=== PATIENT | female | born 1995 | race Caucasian/White ===

== ENCOUNTER 2022-04-27 09:10 | Outpatient (CLI) | payer OTHER, SELFPAY ==
[2022-04-27 15:38] LABS: Vitamin D 25 Hydroxy* 32 ng/mL (30-80)
[2022-04-27 16:30] LABS: TSH With Reflex to FT4* 0.959 uIU/mL (0.270-4.200)
== END 2022-04-27 09:11 | disposition home or self-care (01) ==
PROVIDERS: PCP Family Medicine; Visit Provider Family Medicine
DX: E03.9 Hypothyroidism, unspecified (principal); R53.83 Other fatigue; F41.9 Anxiety disorder, unspecified
CPT/HCPCS: 82306; 84443

== ENCOUNTER 2023-01-12 11:22 | Outpatient (CLI) | payer OTHER, SELFPAY ==
[2023-01-12 23:08] LABS: Chlamydia DNA Amplified* NOT DETECTED (No Detected); GC DNA Amplified* NOT DETECTED (No Detected)
== END 2023-01-12 11:23 | disposition home or self-care (01) ==
PROVIDERS: PCP Family Medicine; Visit Provider Family Medicine
DX: Z11.3 Encounter for screening for infections with a predominantly sexual mode of transmission (principal)
CPT/HCPCS: 80053; 84443; 86592; 86703; 87491; 87591

== ENCOUNTER 2023-01-22 10:50 | Outpatient (CLI) | payer OTHER, SELFPAY | END 2023-01-22 10:51 | disposition home or self-care (01) | LOC: RAD 10:51 | PROVIDERS: PCP Family Medicine; Visit Provider Family Medicine | DX: R01.1 Cardiac murmur, unspecified (principal); F50.9 Eating disorder, unspecified | CPT/HCPCS: 93306 ==

== ENCOUNTER 2023-01-29 07:40 | Outpatient (CLI) | payer OTHER, SELFPAY ==
--- NOTE | 2023-01-29 08:00 | CRLHL7_ITS ---
For Patients: As a result of the Century Cures Act, medical imaging exams and procedure reports are released immediately into your electronic medical record. You may view this report before your referring provider. If you have questions, please contact your health care provider. Indication: Right hip pain for 4 months. Technique: Ultrasound examination of the soft tissue structures of the right anterior hip is performed with a high-resolution linear transducer. Comparison: None available Findings: Normal ultrasound appearance of the subcutaneous and muscular structures of the anterior right hip. There is no sign of any mass or fluid collection. There is no sign of any edema. Impression: Normal ultrasound examination of the soft tissue structures of the right anterior hip. Dictated by Juventino Baron MD @ 02/01/2023 10:38:09 PM (Electronically Signed)
== END 2023-01-29 07:41 | disposition home or self-care (01) ==
PROVIDERS: PCP Family Medicine; Visit Provider Family Medicine
DX: M25.551 Pain in right hip (principal)
CPT/HCPCS: 76857

== ENCOUNTER 2023-11-30 10:11 | Outpatient (CLI) | payer OTHER, SELFPAY | END 2023-11-30 10:12 | disposition home or self-care (01) | PROVIDERS: PCP Family Medicine; Visit Provider Family Medicine | DX: Z00.00 Encounter for general adult medical examination without abnormal findings (principal); F32.A Depression, unspecified; E03.9 Hypothyroidism, unspecified; F41.9 Anxiety disorder, unspecified | CPT/HCPCS: 80053; 84443 ==

== ENCOUNTER 2025-02-12 10:27 | Outpatient (CLI) | payer OTHER, SELFPAY | END 2025-02-12 10:28 | disposition home or self-care (01) | PROVIDERS: PCP Family Medicine; Visit Provider Family Medicine | DX: F32.A Depression, unspecified (principal); E03.9 Hypothyroidism, unspecified; Z13.6 Encounter for screening for cardiovascular disorders | CPT/HCPCS: 80053; 80061; 84439; 84443; 87624; 87625; 88141; 88142; 88175 ==